=== PATIENT | male | born 1950 | race Caucasian/White ===

== ENCOUNTER → 2024-03-15 | Outpatient (CLI) | payer MEDICARE, SELFPAY ==
--- NOTE | 2024-03-15 16:16 | XR_ITS ---
Examination: Lumbar spine, 5 views Technique: Lumbar spine AP, lateral, coned lateral lower lumbar spine, bilateral obliques 5 views Exam date and time: March 15, 2024 1700 hours INDICATIONS: Low back pain beginning 15 years ago FINDINGS: 6 mm calcification over the right kidney Mild to moderate diffuse facet arthropathy Grade 1 anterolisthesis L4 on L5 Moderate lumbar spondylosis Advanced degenerative disc disease L5-S1 IMPRESSION: Advanced degenerative disc disease L5-S1 Recommend abdominal sonography follow-up to differentiate right renal calculus from small gallstone
== END | disposition home or self-care (01) ==
LOC: CDIM 16:08
PROVIDERS: Referring Provider Orthopaedic Surgery; Visit Provider Orthopaedic Surgery
DX: M51.379 Other intervertebral disc degeneration, lumbosacral region without mention of lumbar back pain or lower extremity pain (principal)
CPT/HCPCS: 72110

== ENCOUNTER → 2024-09-13 | Outpatient (CLI) | payer MEDICARE, SELFPAY ==
--- NOTE | 2024-09-13 | XR_ITS ---
Examination: Right elbow 3 views Technique: Elbow AP, oblique, lateral 3 views Exam date and time: September 13, 2024 1427 hours INDICATIONS: Right elbow pain beginning 9 months ago. FINDINGS: Mild elbow osteoarthritis No fracture or dislocation No elbow effusion IMPRESSION: Mild elbow osteoarthritis.
--- NOTE | 2024-09-13 13:55 | XR_ITS ---
Examination: Bilateral hands, 6 views. Technique: AP, Oblique, Lateral each hand total 6 views Date and time of exam: September 13, 2024 1405 hours INDICATIONS: Bilateral hand pain beginning 9 months ago FINDINGS: Moderate osteopenia Mild osteoarthritis distal interphalangeal joints second through fifth digits and interphalangeal joints first digits No fracture or dislocation involving either hand No erosive or other significant arthritic change Impression: Arthritic change as above
== END | disposition home or self-care (01) ==
LOC: CDIM 13:35
PROVIDERS: PCP Family Medicine; Referring Provider Orthopaedic Surgery; Visit Provider Orthopaedic Surgery
DX: M13.842 Other specified arthritis, left hand (principal); M13.841 Other specified arthritis, right hand; M19.021 Primary osteoarthritis, right elbow
CPT/HCPCS: 73080; 73130

== ENCOUNTER → 2024-11-10 | Outpatient (CLI) | payer MEDICARE, SELFPAY ==
--- NOTE | 2024-11-10 | XR_ITS ---
Examination: PA lateral chest 2 views TECHNIQUE: Upright PA lateral chest 2 views Date and time: November 10, 2024, 1207 hours INDICATIONS: Preop FINDINGS: Stable scarring left base compared with March 19, 2023 Normal heart size Ectatic thoracic aorta. No interval pneumonia or pulmonary edema. Right shoulder arthroplasty IMPRESSION: No active disease
== END | disposition home or self-care (01) ==
PROVIDERS: PCP Family Medicine; Referring Provider Family Medicine; Visit Provider Family Medicine
DX: J81.0 Acute pulmonary edema (principal)
CPT/HCPCS: 71046